=== PATIENT | male | born 1970 | race Caucasian/White ===

== ENCOUNTER 2019-02-10 19:12 | Emergency (ER) | payer BC ==
[~2019-02-10] VITALS: Ht 172.7 cm; Wt 102.1 kg
--- OUTSIDE RECORDS SUMMARY | 2019-02-10 19:14 | XMS REPORT | Clinical Summary ---
Author Author [facility] Address Unknown Phone Unavailable Care Team Providers Care Studio Camera Operator Name Role Phone Honorio Valerio MD PCP Allergies Comments Active Allergy Reactions Severity Noted Date Codeine Hives 11/15/2017 Very low Lisinopril Other (See 11/15/2017 Comments) Medications End Date Status Medication Sig Dispensed Refills Start Date Active SYNTHROID 112 mcg tablet 112 mcg 0 daily. 8 Active metFORMIN (GLUCOPHAGE) 500 mg daily 0 500 mg tablet with 8 breakfast. Active allopurinol (ZYLOPRIM) Take 300 mg 1 300 MG tablet by mouth 7 daily. Active fluticasone (FLONASE) 50 0 mcg/actuation nasal spray 7 Active traMADol (ULTRAM) 50 mg Take 50 mg by 0 tablet mouth every 6 (six) hours as needed for moderate pain. Active amLODIPine (NORVASC) 10 Take 10 mg by 0 mg tablet mouth daily. Active testosterone 20.[address] Place 20.25 0 mg/1.25 gram (1.62 %) gel mg on the in metered-dose pump skin daily. Active losartan (COZAAR) 100 MG Take 100 mg 0 tablet by mouth daily. Active PROAIR HFA 90 USE 2 PUFFS 0 mcg/actuation inhaler NEEDED 8 EVERY 6 HRS INHALATION Active azithromycin (ZITHROMAX) TAKE 2 0 250 MG tablet TABLETS BY 8 MOUTH TODAY, THEN TAKE 1 TABLET DAILY FOR 4 DAYS Active riFAXimin (XIFAXAN) 550 Take 550 mg 0 mg tablet by mouth 3 (three) times a day. Active Problems Problem Noted Date History of Adrienne fundoplication 12/14/2017 Small intestinal bacterial overgrowth 12/14/2017 Left upper quadrant pain 12/14/2017 Family History Medical History Relation Name Comments Gallbladder disease Brother Gallbladder disease Father Gallbladder disease Mother Gallbladder disease Sister Relation Name Status Comments Brother Alive Father Alive Mother Alive Sister Alive Social History Date Tobacco Use Types Packs/Day Years Used Never Smoker Smokeless Tobacco: Never Used Alcohol Use Drinks/Week oz/Week Comments No Sex Assigned at Date Recorded Not on file Industry Job Start Date Occupation Not on file Not on file Not on file Travel End Travel History Travel Start No recent travel history available. Last Filed Vital Signs Not on file Plan of Treatment Health Maintenance Due Date Last Done Comments INFLUENZA VACCINE 04/20/2019 Results Not on fileafter 02/09/2018 Insurance Type Payer Benefit Subscriber ID Effective Phone Address Plan / Dates Group PPO AETNA AETNA PPO xxxxxxxxxx 2014- OPEN Present CHOICE Advance Directives Patient has advance care planning documents on file. For more information, [facility] [facility] contact: [facility] [address] [place] [address]
--- OUTSIDE RECORDS SUMMARY | 2019-02-10 19:14 | XMS REPORT | Continuity of Care Document ---
Author Author [facility] Address Unknown Phone Unavailable Problems Problem Status Onset Date Classification Date Reported Comments Source Medications Medication Details Route Status Patient Instructions Ordering Provider Order Date Source Allergies, Adverse Reactions, Alerts Substance Category Reaction Severity Reaction type Status Date Reported Comments Source Immunizations Immunization Date Given Site Status Last Updated Comments Source Results Order Name Results Value Reference Range Date Interpretation Comments Source Vital Signs Vital Sign Value Date Comments Source Encounters Location Location Details Encounter Type Encounter Number Reason For Visit Attending Provider ADM Date DC Date Status Source Outpatient [id number] MESHA GÓMEZ 10/13/2016 Active [facility] Outpatient [id number] MESHA GÓMEZ 11/17/2016 Active [facility] Outpatient [id number] GOLDEN IRENE 12/02/2016 Active [facility] Outpatient [id number] GOLDEN IRENE 03/03/2017 Active [facility] Procedures Procedure Code Date Perfomer Comments Source
[2019-02-10 20:26] LABS: BASOPHILS # (AUTO) 0.1 (0.0-0.1); BASOPHILS % 0.8 % (0.0-1.0); EOSINOPHILS # (AUTO) 0.2 (0.0-0.4); EOSINOPHILS % 1.6 % (0.0-6.0); HEMATOCRIT 53.9 % (38.2-49.6); LYMPHOCYTES # (AUTO) 2.5 (1.0-3.2); LYMPHOCYTES % 18.6 % (18.0-39.1); MEAN CORPUSCULAR HEMOGLOBIN 32.5 pg (28-32); MEAN CORPUSCULAR HGB CONC 35.3 g/dL (31-35); MEAN CORPUSCULAR VOLUME 92.3 fL (81-99); MONOCYTES % 7.1 % (4.4-11.3); NEUTROPHILS # (AUTO) 9.4 (2.1-6.9); PLATELET COUNT 230 x10e3/uL (140-360); RED BLOOD COUNT 5.84 x10e6/uL (4.3-5.7); RED CELL DISTRIBUTION WIDTH 15.1 % (11.7-14.4)
--- NOTE | 2019-02-10 20:33 | Diagnostic Imaging Report ---
EXAMINATION: CHEST 2 VIEWS INDICATION: Chest pain. Shortness of breath ^sob ^[id number] ^2013 ^Y COMPARISON: None FINDINGS: TUBES and LINES: None. LUNGS: Lungs are well inflated. Lungs are clear. There is no evidence of pneumonia or pulmonary edema. PLEURA: No pleural effusion or pneumothorax. HEART AND MEDIASTINUM: The cardiomediastinal silhouette is unremarkable. BONES AND SOFT TISSUES: No acute osseous lesion. Soft tissues are unremarkable. UPPER ABDOMEN: No free air under the diaphragm. IMPRESSION: No acute thoracic abnormality. Signed by: Dr. Daniel Velásquez M.D. on 02/10/2019 8:30 PM
[2019-02-10 20:44] LABS: ALANINE AMINOTRANSFERASE 41 IU/L (0-55); ALBUMIN 4.3 g/dL (3.5-5.0); ALBUMIN/GLOBULIN RATIO 1.5 (0.8-2.0); ALKALINE PHOSPHATASE 72 IU/L (40-150); ANION GAP 14.9 mmol/L (8-16); BLOOD UREA NITROGEN 13 mg/dL (7-26); BUN/CREATININE RATIO 12 (6-25); CARBON DIOXIDE 26 mmol/L (22-29); CHLORIDE 104 mmol/L (98-107); CREATINE KINASE 135 IU/L (30-200); CREATININE, SERUM 1.11 mg/dL (0.72-1.25); EST GLOMERULAR FILTRATION RATE > 60 ML/MIN (60-); GLUCOSE 92 mg/dL (74-118); POTASSIUM 3.9 mmol/L (3.5-5.1); SODIUM 141 mmol/L (136-145)
--- NOTE | 2019-02-10 23:27 | NUR ---
DISCUSSED WITH FAMILY TESTOSTERONE EDUCATION AND NEED TO DISCONTINUE USAGE PER , STATES OK TO D/C WITH BP OF 159/115, MD DOES NOT WANT BP MEDICATION BEFORE DC.
[2019-02-10 23:34] VITALS: BP 159/115
== END 2019-02-10 23:46 | disposition home or self-care (01) ==
LOC: ER 19:12
DX: I10 Essential (primary) hypertension (principal); D75.1 Secondary polycythemia; F41.9 Anxiety disorder, unspecified; K21.9 Gastro-esophageal reflux disease without esophagitis; F43.10 Post-traumatic stress disorder, unspecified
CPT/HCPCS: 36415; 71046; 80053; 82550; 82553; 83880; 84484; 85025; 93005; 99283